=== PATIENT | female | born 1940 | race Asian ===

== ENCOUNTER → 2020-09-18 | Outpatient (CLI) | payer MEDICARE | END | disposition home or self-care (01) | LOC: RADPV 08:48 | PROVIDERS: ATTEND Family Medicine | DX: J90 Pleural effusion, not elsewhere classified (principal); J98.11 Atelectasis; Z20.1 Contact with and (suspected) exposure to tuberculosis | CPT/HCPCS: 71046 ==

== ENCOUNTER 2020-10-03 16:43 | Inpatient (IN) | payer MEDICARE ==
[~2020-10-03] VITALS: Ht 162.6 cm; Wt 52.7 kg
[2020-10-03 19:00] LABS: EOSINOPHILS % (AUTO) 4.9 % (1.0-6.0); HEMATOCRIT 36.2 % (41-53); HEMOGLOBIN 11.7 g/dL (13.5-17.5); LYMPHOCYTES # (AUTO) 1.4 K/uL (1.0-4.8); LYMPHOCYTES % (AUTO) 31.5 % (22.0-44.0); MEAN CORPUSCULAR HEMOGLOBIN 32.1 pg (26.0-34.0); MEAN CORPUSCULAR HGB CONC 32.3 G/dL (31.0-37.0); MEAN CORPUSCULAR VOLUME 99 fL (80-100); MONOCYTES # (AUTO) 0.6 K/uL (0.1-1.0); MONOCYTES % (AUTO) 12.9 % (2.0-9.0); NEUTROPHILS # (AUTO) 2.2 K/uL (1.8-7.7); NEUTROPHILS % (AUTO) 48.7 % (40.0-70.0); PLATELET COUNT (AUTO) 101 K/uL (150-450); RED BLOOD CELL COUNT(AUTO) 3.65 MIL/uL (4.50-5.90); RED CELL DISTRIBUTION WIDTH 16.1 % (11.5-14.5)
[2020-10-03 19:03] LABS: COVID AG,FIA SOURCE NASOPHARYNGEAL
[2020-10-03 19:11] LABS: CALCIUM, TOTAL 8.3 mg/dL (8.8-10.5); CREATININE 1.82 mg/dL (0.60-1.30); POTASSIUM 4.8 mmol/L (3.5-5.1)
[2020-10-03] MEDS ORDERED: ONDANSETRON HCL 4 MG/2 ML VIAL IVP PRN ×2 (19:15→19:30)
[2020-10-03] MEDS ORDERED: ACETAMINOPHEN 325 MG TABLET PO PRN ×2 (19:15→19:30)
[2020-10-03 19:18] LABS: ALBUMIN 2.6 g/dL (3.4-5.0); BILIRUBIN,TOTAL 0.5 mg/dL (0.1-1.0); TOTAL PROTEIN, SERUM 7.9 g/dL (6.4-8.2)
[2020-10-03] MEDS ORDERED: 0.9% SODIUM CHLORIDE 10 ML SYRINGE IVP PRN (19:30)
[2020-10-03] MEDS: DOCUSATE SODIUM 100 MG CAPSULE PO SCH (21:00)
[2020-10-03 21:15] VITALS: BP 154/83
[2020-10-03] MEDS ORDERED: ASPI81TA87 PO (21:48)
[2020-10-03] MEDS ORDERED: ATOR20TA86 PO (21:49)
[2020-10-03] MEDS ORDERED: AMIO200T68 PO (21:49)
[2020-10-03] MEDS ORDERED: APIX2.5T PO (21:50)
[2020-10-03] MEDS ORDERED: CARV3 PO (21:50)
[2020-10-03 23:49] LABS: GLUCOMETER DEV NAME(LOC) 6N.1; GLUCOSE,POINT OF CARE 79 MG/DL (70-110)
[2020-10-03] MEDS: HEPARIN SODIUM,PORCINE 5,000 UNITS/ML VIAL SQ SCH (23:51)
[2020-10-04] VITALS (7 sets, daily range): BP systolic 118–173; BP diastolic 66–85
[2020-10-04] MEDS ORDERED: CloNIDine HCL 0.1 MG TABLET PO PRN
[2020-10-04 02:43] LABS: GLUCOMETER DEV NAME(LOC) 6N.1; GLUCOSE,POINT OF CARE 101 MG/DL (70-110)
[2020-10-04] MEDS ORDERED: SODIUM CHLORIDE 3% 15 ML NEB SOLUTION NEB ONE (05:22)
[2020-10-04] MEDS ORDERED: 0.9% SODIUM CHLORIDE 5 ML NEB SOLUTION NEB ONE (05:23)
[2020-10-04 06:43] LABS: GLUCOMETER DEV NAME(LOC) 6N.1; GLUCOSE,POINT OF CARE 85 MG/DL (70-110)
[2020-10-04 07:06] LABS: HIV 1-2 SCREEN 4TH GEN W/RFLX Non Reactive (Non Reactive)
[2020-10-04 08:43] LABS: APPEARANCE,URINE CLEAR (CLEAR); BILIRUBIN,URINE NEGATIVE (NEGATIVE); GLUCOSE, URINE (UA) NEGATIVE (NEGATIVE); KETONES,URINE NEGATIVE (NEGATIVE); LEUKOCYTE ESTERASE ,URINE NEGATIVE (NEGATIVE); NITRATE,URINE NEGATIVE (NEGATIVE); OCCULT BLOOD,URINE NEGATIVE (NEGATIVE); PROTEIN,URINE SEE CONFIRM (NEGATIVE); UROBILINOGEN,URINE 0.2 mg/dL (<=1.0)
[2020-10-04] MEDS: HEPARIN SODIUM,PORCINE 5,000 UNITS/ML VIAL SQ SCH ×2 (08:56→21:04)
[2020-10-04] MEDS: DOCUSATE SODIUM 100 MG CAPSULE PO SCH ×2 (08:56→21:04)
[2020-10-04] MEDS: FAMOTIDINE 20 MG TABLET PO SCH (08:56)
[2020-10-04 09:05] LABS: BACTERIA,URINE None Seen /HPF (None Seen); RBC,URINE None Seen /HPF (0-2); SULFOSALICYLIC ACID,URINE 3+ (Negative); WBC,URINE None Seen /HPF (0-5)
[2020-10-04] MEDS: INSULIN LISPRO 100 UNITS/ML SQ PRN ×2 (11:56→21:11)
[2020-10-04 12:49] LABS: GLUCOMETER DEV NAME(LOC) 6N.1; GLUCOSE,POINT OF CARE 146 MG/DL (70-110)
[2020-10-04 18:42] LABS: GLUCOMETER DEV NAME(LOC) 6S.1; GLUCOSE,POINT OF CARE 66 MG/DL (70-110)
[2020-10-05 00:03] LABS: GLUCOMETER DEV NAME(LOC) 6N.1; GLUCOSE,POINT OF CARE 153 MG/DL (70-110)
[2020-10-05 04:20] VITALS: BP 155/74
[2020-10-05 06:38] LABS: GLUCOMETER DEV NAME(LOC) 6S.1; GLUCOSE,POINT OF CARE 98 MG/DL (70-110)
[2020-10-05 08:24] VITALS: BP 147/72
[2020-10-05] MEDS: HEPARIN SODIUM,PORCINE 5,000 UNITS/ML VIAL SQ SCH ×2 (08:34→20:30)
[2020-10-05] MEDS: DOCUSATE SODIUM 100 MG CAPSULE PO SCH ×2 (08:34→20:30)
[2020-10-05] MEDS: FAMOTIDINE 20 MG TABLET PO SCH (08:34)
[2020-10-05] MEDS: CARVEDILOL 3.125 MG TABLET PO SCH ×2 (11:29→20:30)
[2020-10-05] MEDS: INSULIN LISPRO 100 UNITS/ML SQ PRN ×3 (11:32→20:32)
[2020-10-05 14:52] LABS: INR 1.1 (0.9-1.1); PROTHROMBIN TIME 11.4 SEC (9.4-11.6)
[2020-10-05] MEDS: CloNIDine HCL 0.1 MG TABLET PO PRN (15:50)
[2020-10-05 16:05] VITALS: BP 178/83
[2020-10-05 16:55] VITALS: BP 155/82
[2020-10-05 18:59] LABS: GLUCOMETER DEV NAME(LOC) 6N.1; GLUCOSE,POINT OF CARE 139 MG/DL (70-110)
[2020-10-05 19:53] VITALS: BP 164/73
[2020-10-05] MEDS: ATORVASTATIN CALCIUM 20 MG TABLET PO SCH (20:30)
[2020-10-06 00:02] VITALS: BP 143/68
[2020-10-06 00:41] LABS: GLUCOMETER DEV NAME(LOC) 6S.1; GLUCOSE,POINT OF CARE 104 MG/DL (70-110)
[2020-10-06 00:41] LABS: GLUCOMETER DEV NAME(LOC) 6S.1; GLUCOSE,POINT OF CARE 214 MG/DL (70-110)
[2020-10-06 04:43] VITALS: BP 158/74
[2020-10-06 07:07] LABS: GLUCOMETER DEV NAME(LOC) 6S.1; GLUCOSE,POINT OF CARE 84 MG/DL (70-110)
[2020-10-06 07:48] VITALS: BP 152/71
[2020-10-06 08:06] LABS: QUANTIFERON, TB GOLD PLUS Positive (Negative)
[2020-10-06] MEDS: DOCUSATE SODIUM 100 MG CAPSULE PO SCH ×2 (09:00→20:43)
[2020-10-06] MEDS: FAMOTIDINE 20 MG TABLET PO SCH (09:00)
[2020-10-06] MEDS: CARVEDILOL 3.125 MG TABLET PO SCH ×2 (09:00→20:43)
[2020-10-06] MEDS: HEPARIN SODIUM,PORCINE 5,000 UNITS/ML VIAL SQ SCH ×2 (09:00→20:43)
[2020-10-06] MEDS: ASPIRIN 81 MG CHEWABLE TABLET PO SCH (09:00)
[2020-10-06 11:01] LABS: SPECIMENTYPE,BODY FLUID PLEURAL
[2020-10-06 11:24] LABS: APPEARANCE,UNSPUN,BODY FLUID HAZY (CLEAR); COLOR,BODY FLUID RED (LT YELLOW); TOTAL VOLUME,BODY FLUID 200 mL
[2020-10-06 11:27] LABS: APPEARANCE,SPUN,BODY FLUID CLEAR (CLEAR)
[2020-10-06] MEDS: INSULIN LISPRO 100 UNITS/ML SQ PRN ×2 (11:30→17:22)
[2020-10-06 12:05] LABS: BASOPHILS,BODY FLUID 0 %; EOSINOPHILS,BF (ANAL) 0 %; LYMPHOCYTES,BODY FLUID 100 %; MONOCYTES,BODY FLUID 0 %; NEUTROPHILS,BODY FLUID 0 %; WBC, BODY FLUID 6 /cu. mm.
[2020-10-06 12:58] LABS: GLUCOMETER DEV NAME(LOC) 6S.1; GLUCOSE,POINT OF CARE 92 MG/DL (70-110)
[2020-10-06] MEDS ORDERED: SODIUM CHLORIDE 0.9% 1,000 ML ONE ×2 (13:15)
[2020-10-06] MEDS: ATORVASTATIN CALCIUM 20 MG TABLET PO SCH (20:43)
[2020-10-06 20:49] VITALS: BP 152/80
[2020-10-06 23:01] LABS: GLUCOMETER DEV NAME(LOC) 6N.1; GLUCOSE,POINT OF CARE 91 MG/DL (70-110)
[2020-10-06 23:01] LABS: GLUCOMETER DEV NAME(LOC) 6N.1; GLUCOSE,POINT OF CARE 86 MG/DL (70-110)
[2020-10-07 00:21] VITALS: BP 147/64
[2020-10-07 04:05] VITALS: BP 142/65
[2020-10-07] MEDS: CARVEDILOL 3.125 MG TABLET PO SCH ×2 (08:16→21:33)
[2020-10-07] MEDS: ASPIRIN 81 MG CHEWABLE TABLET PO SCH (08:16)
[2020-10-07] MEDS: HEPARIN SODIUM,PORCINE 5,000 UNITS/ML VIAL SQ SCH ×2 (08:16→21:33)
[2020-10-07] MEDS: DOCUSATE SODIUM 100 MG CAPSULE PO SCH ×2 (08:16→21:33)
[2020-10-07] MEDS: FAMOTIDINE 20 MG TABLET PO SCH (08:16)
[2020-10-07 08:20] VITALS: BP 143/56
[2020-10-07 12:56] LABS: GLUCOMETER DEV NAME(LOC) 6N.1; GLUCOSE,POINT OF CARE 80 MG/DL (70-110)
[2020-10-07 12:56] LABS: GLUCOMETER DEV NAME(LOC) 6N.1; GLUCOSE,POINT OF CARE 130 MG/DL (70-110)
[2020-10-07 15:26] VITALS: BP 146/77
[2020-10-07] MEDS ORDERED: HEPARIN SODIUM,PORCINE 1,000 UNITS/ML VIAL IVP ONE (16:41)
[2020-10-07 18:33] LABS: GLUCOMETER DEV NAME(LOC) 6N.1; GLUCOSE,POINT OF CARE 86 MG/DL (70-110)
[2020-10-07 20:07] VITALS: BP 152/73
[2020-10-07] MEDS: ATORVASTATIN CALCIUM 20 MG TABLET PO SCH (21:33)
[2020-10-07 21:52] LABS: GLUCOMETER DEV NAME(LOC) 6S.1; GLUCOSE,POINT OF CARE 119 MG/DL (70-110)
[2020-10-07 23:36] VITALS: BP 146/66
[2020-10-08 04:36] VITALS: BP 149/66
[2020-10-08 07:28] LABS: ALBUMIN 2.5 g/dL (3.4-5.0); BILIRUBIN,TOTAL 0.4 mg/dL (0.1-1.0); CREATININE 3.4 mg/dL (0.60-1.30); POTASSIUM 3.9 mmol/L (3.5-5.1); TOTAL PROTEIN, SERUM 7.1 g/dL (6.4-8.2)
[2020-10-08 08:48] VITALS: BP 151/60
[2020-10-08] MEDS: ASPIRIN 81 MG CHEWABLE TABLET PO SCH (09:00)
[2020-10-08] MEDS: HEPARIN SODIUM,PORCINE 5,000 UNITS/ML VIAL SQ SCH ×2 (09:00→21:31)
[2020-10-08] MEDS: CARVEDILOL 3.125 MG TABLET PO SCH ×2 (09:00→21:31)
[2020-10-08] MEDS: VITAMIN B COMP/VIT C/FOLIC ACID CAPSULE PO SCH (09:20)
[2020-10-08] MEDS: FAMOTIDINE 20 MG TABLET PO SCH (09:20)
[2020-10-08] MEDS: DOCUSATE SODIUM 100 MG CAPSULE PO SCH ×2 (09:20→21:31)
[2020-10-08 11:01] LABS: GLUCOMETER DEV NAME(LOC) 6S.1; GLUCOSE,POINT OF CARE 74 MG/DL (70-110)
[2020-10-08 14:21] LABS: GLUCOMETER DEV NAME(LOC) 6N.1; GLUCOSE,POINT OF CARE 109 MG/DL (70-110)
[2020-10-08 16:30] VITALS: BP 130/84
[2020-10-08] MEDS ORDERED: SODIUM CHLORIDE 0.9% 2,000 ML ONE (17:06)
[2020-10-08 21:02] VITALS: BP 180/86
[2020-10-08] MEDS: ATORVASTATIN CALCIUM 20 MG TABLET PO SCH (21:31)
[2020-10-08 22:19] LABS: GLUCOMETER DEV NAME(LOC) 6S.1; GLUCOSE,POINT OF CARE 115 MG/DL (70-110)
[2020-10-09] VITALS (7 sets, daily range): BP systolic 119–158; BP diastolic 60–84
[2020-10-09] MEDS: VITAMIN B COMP/VIT C/FOLIC ACID CAPSULE PO SCH (09:08)
[2020-10-09] MEDS: ASPIRIN 81 MG CHEWABLE TABLET PO SCH (09:08)
[2020-10-09] MEDS: HEPARIN SODIUM,PORCINE 5,000 UNITS/ML VIAL SQ SCH ×2 (09:08→20:43)
[2020-10-09] MEDS: FAMOTIDINE 20 MG TABLET PO SCH (09:08)
[2020-10-09] MEDS: DOCUSATE SODIUM 100 MG CAPSULE PO SCH ×2 (09:08→20:43)
[2020-10-09] MEDS: CARVEDILOL 3.125 MG TABLET PO SCH ×2 (09:08→20:43)
[2020-10-09 13:16] LABS: GLUCOMETER DEV NAME(LOC) 6N.1; GLUCOSE,POINT OF CARE 113 MG/DL (70-110)
[2020-10-09 13:16] LABS: GLUCOMETER DEV NAME(LOC) 6N.1; GLUCOSE,POINT OF CARE 93 MG/DL (70-110)
[2020-10-09] MEDS ORDERED: HEPARIN SODIUM,PORCINE 1,000 UNITS/ML VIAL IVP ONE (14:55)
[2020-10-09 18:49] LABS: GLUCOMETER DEV NAME(LOC) 6S.1; GLUCOSE,POINT OF CARE 96 MG/DL (70-110)
[2020-10-09] MEDS: ATORVASTATIN CALCIUM 20 MG TABLET PO SCH (20:43)
[2020-10-10 00:15] LABS: GLUCOMETER DEV NAME(LOC) 6N.1; GLUCOSE,POINT OF CARE 90 MG/DL (70-110)
[2020-10-10 04:02] VITALS: BP 149/67
[2020-10-10 06:18] LABS: GLUCOMETER DEV NAME(LOC) 6N.1; GLUCOSE,POINT OF CARE 90 MG/DL (70-110)
[2020-10-10] MEDS: FAMOTIDINE 20 MG TABLET PO SCH (08:19)
[2020-10-10] MEDS: VITAMIN B COMP/VIT C/FOLIC ACID CAPSULE PO SCH (08:19)
[2020-10-10] MEDS: DOCUSATE SODIUM 100 MG CAPSULE PO SCH ×2 (08:20→20:39)
[2020-10-10] MEDS: ASPIRIN 81 MG CHEWABLE TABLET PO SCH (08:20)
[2020-10-10] MEDS: HEPARIN SODIUM,PORCINE 5,000 UNITS/ML VIAL SQ SCH ×2 (08:20→20:40)
[2020-10-10 08:25] VITALS: BP 137/71
[2020-10-10] MEDS: CARVEDILOL 3.125 MG TABLET PO SCH ×3 (08:26→21:00)
[2020-10-10] MEDS ORDERED: SODIUM CHLORIDE 0.9% 1,000 ML ONE ×2 (09:30)
[2020-10-10 12:28] VITALS: BP 133/74
[2020-10-10 12:38] LABS: GLUCOMETER DEV NAME(LOC) 6S.1; GLUCOSE,POINT OF CARE 93 MG/DL (70-110)
[2020-10-10 16:08] VITALS: BP 141/69
[2020-10-10] MEDS: RIFAMPIN 300 MG CAPSULE PO SCH (16:39)
[2020-10-10] MEDS: ISONIAZID 300 MG TABLET PO SCH (16:39)
[2020-10-10] MEDS: ETHAMBUTOL HCL 400 MG TABLET PO SCH (16:39)
[2020-10-10] MEDS ORDERED: HEPARIN SODIUM,PORCINE 1,000 UNITS/ML VIAL ONE (17:44)
[2020-10-10 19:19] LABS: GLUCOMETER DEV NAME(LOC) 6S.1; GLUCOSE,POINT OF CARE 97 MG/DL (70-110)
[2020-10-10 20:00] VITALS: BP 140/66
[2020-10-10] MEDS: ATORVASTATIN CALCIUM 20 MG TABLET PO SCH (20:39)
[2020-10-10 23:40] VITALS: BP 107/77
[2020-10-11 01:23] LABS: GLUCOMETER DEV NAME(LOC) 6N.1; GLUCOSE,POINT OF CARE 107 MG/DL (70-110)
[2020-10-11] MEDS: INSULIN LISPRO 100 UNITS/ML SQ PRN (06:14)
[2020-10-11 06:30] LABS: GLUCOMETER DEV NAME(LOC) 6N.1; GLUCOSE,POINT OF CARE 158 MG/DL (70-110)
[2020-10-11 07:44] VITALS: BP 129/68
[2020-10-11] MEDS: ASPIRIN 81 MG CHEWABLE TABLET PO SCH (08:27)
[2020-10-11] MEDS: CARVEDILOL 3.125 MG TABLET PO SCH ×2 (08:27→22:16)
[2020-10-11] MEDS: RIFAMPIN 300 MG CAPSULE PO SCH (08:27)
[2020-10-11] MEDS: DOCUSATE SODIUM 100 MG CAPSULE PO SCH ×2 (08:27→22:15)
[2020-10-11] MEDS: HEPARIN SODIUM,PORCINE 5,000 UNITS/ML VIAL SQ SCH ×2 (08:27→22:16)
[2020-10-11] MEDS: ISONIAZID 300 MG TABLET PO SCH (08:27)
[2020-10-11] MEDS: FAMOTIDINE 20 MG TABLET PO SCH (08:27)
[2020-10-11] MEDS: VITAMIN B COMP/VIT C/FOLIC ACID CAPSULE PO SCH (08:27)
[2020-10-11] MEDS ORDERED: PYRAZINAMIDE 500 MG TABLET PO ONE (10:30)
[2020-10-11 12:00] VITALS: BP 123/71
[2020-10-11 12:46] LABS: GLUCOMETER DEV NAME(LOC) 6S.1; GLUCOSE,POINT OF CARE 74 MG/DL (70-110)
[2020-10-11 15:35] VITALS: BP 122/64
[2020-10-11 21:03] VITALS: BP 136/65
[2020-10-11] MEDS: ATORVASTATIN CALCIUM 20 MG TABLET PO SCH (22:15)
[2020-10-11 23:41] LABS: GLUCOMETER DEV NAME(LOC) 6N.1; GLUCOSE,POINT OF CARE 96 MG/DL (70-110)
[2020-10-12 00:20] VITALS: BP 106/57
[2020-10-12 00:38] LABS: GLUCOMETER DEV NAME(LOC) 6S.1; GLUCOSE,POINT OF CARE 98 MG/DL (70-110)
[2020-10-12 04:55] VITALS: BP 105/56
[2020-10-12 06:26] LABS: GLUCOMETER DEV NAME(LOC) 6S.1; GLUCOSE,POINT OF CARE 87 MG/DL (70-110)
[2020-10-12 07:35] VITALS: BP 123/59
[2020-10-12] MEDS: HEPARIN SODIUM,PORCINE 5,000 UNITS/ML VIAL SQ SCH ×2 (09:13→21:07)
[2020-10-12] MEDS: ISONIAZID 300 MG TABLET PO SCH (09:13)
[2020-10-12] MEDS: DOCUSATE SODIUM 100 MG CAPSULE PO SCH ×2 (09:14→21:07)
[2020-10-12] MEDS: ASPIRIN 81 MG CHEWABLE TABLET PO SCH (09:14)
[2020-10-12] MEDS: VITAMIN B COMP/VIT C/FOLIC ACID CAPSULE PO SCH (09:14)
[2020-10-12] MEDS: FAMOTIDINE 20 MG TABLET PO SCH (09:14)
[2020-10-12] MEDS: CARVEDILOL 3.125 MG TABLET PO SCH ×2 (09:14→21:07)
[2020-10-12] MEDS: RIFAMPIN 300 MG CAPSULE PO SCH (09:14)
[2020-10-12 13:24] LABS: GLUCOMETER DEV NAME(LOC) 6S.1; GLUCOSE,POINT OF CARE 97 MG/DL (70-110)
[2020-10-12 16:19] VITALS: BP 108/57
[2020-10-12 19:38] VITALS: BP 107/71
[2020-10-12] MEDS: ATORVASTATIN CALCIUM 20 MG TABLET PO SCH (21:08)
[2020-10-12 23:41] VITALS: BP 93/50
[2020-10-13 04:40] VITALS: BP 96/40
[2020-10-13 05:43] LABS: GLUCOMETER DEV NAME(LOC) 6N.1; GLUCOSE,POINT OF CARE 86 MG/DL (70-110)
[2020-10-13 05:43] LABS: GLUCOMETER DEV NAME(LOC) 6N.1; GLUCOSE,POINT OF CARE 86 MG/DL (70-110)
[2020-10-13 05:43] LABS: GLUCOMETER DEV NAME(LOC) 6N.1; GLUCOSE,POINT OF CARE 89 MG/DL (70-110)
[2020-10-13 07:51] VITALS: BP 104/56
[2020-10-13] MEDS: HEPARIN SODIUM,PORCINE 5,000 UNITS/ML VIAL SQ SCH ×2 (08:11→21:20)
[2020-10-13] MEDS: VITAMIN B COMP/VIT C/FOLIC ACID CAPSULE PO SCH (08:11)
[2020-10-13] MEDS: FAMOTIDINE 20 MG TABLET PO SCH (08:12)
[2020-10-13] MEDS: ASPIRIN 81 MG CHEWABLE TABLET PO SCH (08:12)
[2020-10-13] MEDS: CARVEDILOL 3.125 MG TABLET PO SCH ×2 (08:12→21:00)
[2020-10-13] MEDS: DOCUSATE SODIUM 100 MG CAPSULE PO SCH ×2 (08:12→21:20)
[2020-10-13] MEDS ORDERED: SODIUM CHLORIDE 0.9% 1,000 ML ONE (09:41)
[2020-10-13 13:03] LABS: GLUCOMETER DEV NAME(LOC) 6S.1; GLUCOSE,POINT OF CARE 81 MG/DL (70-110)
[2020-10-13] MEDS: PYRAZINAMIDE 500 MG TABLET PO SCH (14:22)
[2020-10-13] MEDS: ISONIAZID 300 MG TABLET PO SCH (14:23)
[2020-10-13] MEDS: RIFAMPIN 300 MG CAPSULE PO SCH (14:23)
[2020-10-13] MEDS: ETHAMBUTOL HCL 400 MG TABLET PO SCH (14:23)
[2020-10-13 15:50] VITALS: BP 108/58
[2020-10-13] MEDS ORDERED: HEPARIN SODIUM,PORCINE 1,000 UNITS/ML VIAL ONE (17:44)
[2020-10-13 18:03] VITALS: BP 104/53
[2020-10-13 20:10] LABS: GLUCOMETER DEV NAME(LOC) 6N.1; GLUCOSE,POINT OF CARE 80 MG/DL (70-110)
[2020-10-13 20:11] VITALS: BP 111/50
[2020-10-13] MEDS: ATORVASTATIN CALCIUM 20 MG TABLET PO SCH (21:20)
[2020-10-13] MEDS: DEXTROSE 50%-WATER 25 GM/50 ML SYRINGE IVP PRN (21:21)
[2020-10-13 21:46] LABS: GLUCOMETER DEV NAME(LOC) 6S.1; GLUCOSE,POINT OF CARE 71 MG/DL (70-110)
[2020-10-13 21:46] LABS: GLUCOMETER DEV NAME(LOC) 6S.1; GLUCOSE,POINT OF CARE 266 MG/DL (70-110)
[2020-10-13 21:46] LABS: GLUCOMETER DEV NAME(LOC) 6S.1; GLUCOSE,POINT OF CARE 68 MG/DL (70-110)
[2020-10-13 23:23] VITALS: BP 98/47
[2020-10-14 03:46] VITALS: BP 111/44
[2020-10-14 07:33] LABS: GLUCOMETER DEV NAME(LOC) 6N.1; GLUCOSE,POINT OF CARE 67 MG/DL (70-110)
[2020-10-14 07:33] LABS: GLUCOMETER DEV NAME(LOC) 6N.1; GLUCOSE,POINT OF CARE 81 MG/DL (70-110)
[2020-10-14 07:45] VITALS: BP 108/44
[2020-10-14] MEDS: VITAMIN B COMP/VIT C/FOLIC ACID CAPSULE PO SCH (08:29)
[2020-10-14] MEDS: CARVEDILOL 3.125 MG TABLET PO SCH ×2 (08:29→20:39)
[2020-10-14] MEDS: HEPARIN SODIUM,PORCINE 5,000 UNITS/ML VIAL SQ SCH ×2 (08:30→20:39)
[2020-10-14] MEDS: ISONIAZID 300 MG TABLET PO SCH (08:30)
[2020-10-14] MEDS: RIFAMPIN 300 MG CAPSULE PO SCH (08:30)
[2020-10-14] MEDS: DOCUSATE SODIUM 100 MG CAPSULE PO SCH ×2 (08:30→20:39)
[2020-10-14] MEDS: FAMOTIDINE 20 MG TABLET PO SCH (08:30)
[2020-10-14] MEDS: ASPIRIN 81 MG CHEWABLE TABLET PO SCH (08:30)
[2020-10-14] MEDS: INSULIN LISPRO 100 UNITS/ML SQ PRN ×2 (12:03→17:56)
[2020-10-14 14:03] LABS: GLUCOMETER DEV NAME(LOC) 6N.1; GLUCOSE,POINT OF CARE 174 MG/DL (70-110)
[2020-10-14] MEDS ORDERED: B CO1CAP6 PO (14:25)
[2020-10-14] MEDS ORDERED: PYRA500 PO (14:25)
[2020-10-14] MEDS ORDERED: ISON300 PO (14:25)
[2020-10-14] MEDS ORDERED: RIFA300 PO (14:25)
[2020-10-14] MEDS ORDERED: ETHA400 PO (14:25)
[2020-10-14 17:00] VITALS: BP 135/61
[2020-10-14] MEDS: DEXTROSE 50%-WATER 25 GM/50 ML SYRINGE IVP PRN (17:28)
[2020-10-14 20:26] VITALS: BP 113/47
[2020-10-14] MEDS: ATORVASTATIN CALCIUM 20 MG TABLET PO SCH (20:39)
[2020-10-14 23:51] VITALS: BP 107/49
[2020-10-15 04:00] VITALS: BP 110/52
[2020-10-15] MEDS ORDERED: SODIUM CHLORIDE 0.9% 2,000 ML ONE (07:13)
[2020-10-15 07:25] LABS: GLUCOMETER DEV NAME(LOC) 6N.1; GLUCOSE,POINT OF CARE 64 MG/DL (70-110)
[2020-10-15 07:25] LABS: GLUCOMETER DEV NAME(LOC) 6N.1; GLUCOSE,POINT OF CARE 85 MG/DL (70-110)
[2020-10-15 07:25] LABS: GLUCOMETER DEV NAME(LOC) 6N.1; GLUCOSE,POINT OF CARE 65 MG/DL (70-110)
[2020-10-15 07:25] LABS: GLUCOMETER DEV NAME(LOC) 6N.1; GLUCOSE,POINT OF CARE 134 MG/DL (70-110)
[2020-10-15 07:25] LABS: GLUCOMETER DEV NAME(LOC) 6N.1; GLUCOSE,POINT OF CARE 146 MG/DL (70-110)
[2020-10-15 08:10] VITALS: BP 139/72
[2020-10-15] MEDS: ASPIRIN 81 MG CHEWABLE TABLET PO SCH (11:05)
[2020-10-15] MEDS: PYRAZINAMIDE 500 MG TABLET PO SCH (11:05)
[2020-10-15] MEDS: FAMOTIDINE 20 MG TABLET PO SCH (11:06)
[2020-10-15] MEDS: VITAMIN B COMP/VIT C/FOLIC ACID CAPSULE PO SCH (11:06)
[2020-10-15] MEDS: ETHAMBUTOL HCL 400 MG TABLET PO SCH (11:06)
[2020-10-15] MEDS: DOCUSATE SODIUM 100 MG CAPSULE PO SCH ×2 (11:06→20:36)
[2020-10-15] MEDS: RIFAMPIN 300 MG CAPSULE PO SCH (11:06)
[2020-10-15] MEDS: CARVEDILOL 3.125 MG TABLET PO SCH ×2 (11:06→20:36)
[2020-10-15] MEDS: HEPARIN SODIUM,PORCINE 5,000 UNITS/ML VIAL SQ SCH ×2 (11:07→20:36)
[2020-10-15 11:40] VITALS: BP 127/60
[2020-10-15] MEDS: ISONIAZID 300 MG TABLET PO SCH (11:48)
[2020-10-15 11:54] LABS: CREATININE 1.76 mg/dL (0.60-1.30); MAGNESIUM 1.2 mg/dL (1.80-2.40); PHOSPHORUS 2.3 mg/dL (2.5-4.9); POTASSIUM 4.1 mmol/L (3.5-5.1)
[2020-10-15] MEDS: INSULIN LISPRO 100 UNITS/ML SQ PRN ×2 (12:02→16:54)
[2020-10-15 14:09] LABS: GLUCOMETER DEV NAME(LOC) 6S.1; GLUCOSE,POINT OF CARE 89 MG/DL (70-110)
[2020-10-15 14:09] LABS: GLUCOMETER DEV NAME(LOC) 6S.1; GLUCOSE,POINT OF CARE 69 MG/DL (70-110)
[2020-10-15] MEDS ORDERED: MAGNESIUM SULFATE 0.5 GM in DEXTROSE 5%-WATER 50 ML IV ONE (14:30)
[2020-10-15] MEDS ORDERED: SODIUM CHLORIDE 0.9% 50 ML ONE (14:52)
[2020-10-15 15:10] VITALS: BP 143/65
[2020-10-15 15:26] LABS: BILIRUBIN,DIRECT 0.6 mg/dL (0.00-0.20); BILIRUBIN,TOTAL 0.9 mg/dL (0.1-1.0); TOTAL PROTEIN, SERUM 8.1 g/dL (6.4-8.2)
[2020-10-15] MEDS: PYRIDOXINE HCL 50 MG TABLET PO SCH (15:42)
[2020-10-15 16:11] LABS: ABG BASE EXCESS 4.2 mmol/L (-2.0-3.0); ABG CARBOXYHEMOGLOBIN 0.3 % (0.0-1.5); ABG HCO3 27.5 mmol/L (22.0-26.0); ABG METHEMOGLOBIN 0.3 % (0.0-1.5); ABG OXYGEN CONTENT 14.9 mL/dL (15.0-23.0); ABG OXYGEN SATURATION 99.1 % (95.0-98.0); ABG OXYHEMOGLOBIN 98.5 % (94.0-100.0); ABG PCO2 53 mmHg (35-45); ABG PH 7.363 (7.35-7.450); ABG TOTAL HEMOGLOBIN 10.5 G/dL (12.0-18.0); SOURCE, BLOOD GAS ARTERIAL; TEMPERATURE, FAHRENHEIT, BG 98.6 FAHREN (96.0-98.6)
[2020-10-15 16:12] LABS: O2 DEVICE,BLOOD GAS CANNULA (ROOM AIR); SITE, BLOOD GAS RT RADIAL
[2020-10-15] MEDS ORDERED: *CLINICAL-CEFTAZIDIME DOSING CLINICAL ONE (17:00)
[2020-10-15] MEDS ORDERED: HEPARIN SODIUM,PORCINE 1,000 UNITS/ML VIAL IVP ONE (17:33)
[2020-10-15] MEDS: CefTAZidime PENTAHYDRATE 1 GM in DEXTROSE 5%-WATER 50 ML IV SCH (18:14)
[2020-10-15 18:25] LABS: BASOPHILS % (AUTO) 0.5 % (0.0-2.0); EOSINOPHILS % (AUTO) 0.4 % (1.0-6.0); HEMATOCRIT 31.7 % (41-53); HEMOGLOBIN 10.4 g/dL (13.5-17.5); LYMPHOCYTES # (AUTO) 0.5 K/uL (1.0-4.8); LYMPHOCYTES % (AUTO) 10.4 % (22.0-44.0); MEAN CORPUSCULAR HEMOGLOBIN 32.2 pg (26.0-34.0); MEAN CORPUSCULAR HGB CONC 32.7 G/dL (31.0-37.0); MEAN CORPUSCULAR VOLUME 98 fL (80-100); MONOCYTES # (AUTO) 0.7 K/uL (0.1-1.0); MONOCYTES % (AUTO) 14.1 % (2.0-9.0); NEUTROPHILS # (AUTO) 3.6 K/uL (1.8-7.7); NEUTROPHILS % (AUTO) 74.6 % (40.0-70.0); RED BLOOD CELL COUNT(AUTO) 3.22 MIL/uL (4.50-5.90); RED CELL DISTRIBUTION WIDTH 15.7 % (11.5-14.5)
[2020-10-15] MEDS ORDERED: VANCOMYCIN HCL 1 GM/D5% WATER 200 ML IV ONE (18:30)
[2020-10-15 19:15] LABS: GLUCOMETER DEV NAME(LOC) 6N.1; GLUCOSE,POINT OF CARE 155 MG/DL (70-110)
[2020-10-15 19:19] LABS: PLATELET COUNT (AUTO) 105 K/uL (150-450)
[2020-10-15 20:12] VITALS: BP 128/65
[2020-10-15] MEDS: ATORVASTATIN CALCIUM 20 MG TABLET PO SCH (20:36)
[2020-10-15 22:12] LABS: GLUCOMETER DEV NAME(LOC) 6S.1; GLUCOSE,POINT OF CARE 159 MG/DL (70-110)
[2020-10-15 23:49] VITALS: BP 120/55
[2020-10-16 05:53] VITALS: BP 133/55
[2020-10-16 06:12] LABS: GLUCOMETER DEV NAME(LOC) 6S.1; GLUCOSE,POINT OF CARE 74 MG/DL (70-110)
[2020-10-16 06:12] LABS: GLUCOMETER DEV NAME(LOC) 6S.1; GLUCOSE,POINT OF CARE 122 MG/DL (70-110)
[2020-10-16 06:24] LABS: CALCIUM, TOTAL 7.5 mg/dL (8.8-10.5); CREATININE 3.7 mg/dL (0.60-1.30); MAGNESIUM 2.1 mg/dL (1.80-2.40); POTASSIUM 5.2 mmol/L (3.5-5.1)
[2020-10-16 07:03] LABS: BILIRUBIN,URINE NEGATIVE (NEGATIVE); GLUCOSE, URINE (UA) NEGATIVE (NEGATIVE); KETONES,URINE NEGATIVE (NEGATIVE); LEUKOCYTE ESTERASE ,URINE SMALL (NEGATIVE); NITRATE,URINE NEGATIVE (NEGATIVE); OCCULT BLOOD,URINE SMALL (NEGATIVE); PH,URINE 6.5 (5.0-8.0); PROTEIN,URINE SEE CONFIRM (NEGATIVE)
[2020-10-16 07:51] LABS: APPEARANCE,URINE HAZY (CLEAR)
[2020-10-16 07:52] LABS: BACTERIA,URINE None Seen /HPF (None Seen); SULFOSALICYLIC ACID,URINE 2+ (Negative)
[2020-10-16 07:53] LABS: FINE GRANULAR CASTS,URINE 0-2 /LPF (None Seen)
[2020-10-16] MEDS ORDERED: VANCOMYCIN HCL 750 MG in DEXTROSE 5%-WATER 250 ML IV SCH (08:00)
[2020-10-16 08:06] VITALS: BP 155/63
[2020-10-16] MEDS ORDERED: VANCOMYCIN HCL 1 GM/D5% WATER 200 ML IV PRN (08:45)
[2020-10-16] MEDS: ISONIAZID 300 MG TABLET PO SCH (09:03)
[2020-10-16] MEDS: VITAMIN B COMP/VIT C/FOLIC ACID CAPSULE PO SCH (09:03)
[2020-10-16] MEDS: ASPIRIN 81 MG CHEWABLE TABLET PO SCH (09:03)
[2020-10-16] MEDS: FAMOTIDINE 20 MG TABLET PO SCH (09:03)
[2020-10-16] MEDS: RIFABUTIN 150 MG CAPSULE PO SCH (09:03)
[2020-10-16] MEDS: PYRIDOXINE HCL 50 MG TABLET PO SCH (09:04)
[2020-10-16] MEDS: DOCUSATE SODIUM 100 MG CAPSULE PO SCH ×2 (09:04→19:54)
[2020-10-16] MEDS: HEPARIN SODIUM,PORCINE 5,000 UNITS/ML VIAL SQ SCH (09:04)
[2020-10-16] MEDS: CARVEDILOL 3.125 MG TABLET PO SCH ×2 (09:04→19:54)
[2020-10-16 13:15] VITALS: BP 154/63
[2020-10-16 16:30] VITALS: BP 168/81
[2020-10-16] MEDS: CefTAZidime PENTAHYDRATE 1 GM in DEXTROSE 5%-WATER 50 ML IV SCH (17:53)
[2020-10-16] MEDS: APIXABAN 2.5 MG TABLET PO SCH (19:54)
[2020-10-16] MEDS: ATORVASTATIN CALCIUM 20 MG TABLET PO SCH (19:55)
[2020-10-16 19:56] VITALS: BP 152/68
[2020-10-16 20:11] LABS: GLUCOMETER DEV NAME(LOC) 6S.1; GLUCOSE,POINT OF CARE 126 MG/DL (70-110)
[2020-10-16 20:11] LABS: GLUCOMETER DEV NAME(LOC) 6S.1; GLUCOSE,POINT OF CARE 136 MG/DL (70-110)
[2020-10-17] VITALS (8 sets, daily range): BP systolic 144–169; BP diastolic 62–84
[2020-10-17 00:17] LABS: GLUCOMETER DEV NAME(LOC) 6S.1; GLUCOSE,POINT OF CARE 125 MG/DL (70-110)
[2020-10-17 07:35] LABS: GLUCOMETER DEV NAME(LOC) 6S.1; GLUCOSE,POINT OF CARE 107 MG/DL (70-110)
[2020-10-17 07:35] LABS: GLUCOMETER DEV NAME(LOC) 6S.1; GLUCOSE,POINT OF CARE 74 MG/DL (70-110)
[2020-10-17] MEDS: ASPIRIN 81 MG CHEWABLE TABLET PO SCH (08:16)
[2020-10-17] MEDS: RIFABUTIN 150 MG CAPSULE PO SCH (08:16)
[2020-10-17] MEDS: PYRAZINAMIDE 500 MG TABLET PO SCH (08:16)
[2020-10-17] MEDS: ETHAMBUTOL HCL 400 MG TABLET PO SCH (08:16)
[2020-10-17] MEDS: VITAMIN B COMP/VIT C/FOLIC ACID CAPSULE PO SCH (08:17)
[2020-10-17] MEDS: FAMOTIDINE 20 MG TABLET PO SCH (08:17)
[2020-10-17] MEDS: DOCUSATE SODIUM 100 MG CAPSULE PO SCH ×2 (08:17→20:30)
[2020-10-17] MEDS: APIXABAN 2.5 MG TABLET PO SCH ×2 (08:17→20:30)
[2020-10-17] MEDS: ISONIAZID 300 MG TABLET PO SCH (08:17)
[2020-10-17 08:25] LABS: BASOPHILS % (AUTO) 1.1 % (0.0-2.0); EOSINOPHILS % (AUTO) 0.8 % (1.0-6.0); HEMATOCRIT 31.9 % (41-53); HEMOGLOBIN 10.7 g/dL (13.5-17.5); LYMPHOCYTES % (AUTO) 15.8 % (22.0-44.0); MEAN CORPUSCULAR HGB CONC 33.7 G/dL (31.0-37.0); MEAN CORPUSCULAR VOLUME 98 fL (80-100); MONOCYTES # (AUTO) 0.7 K/uL (0.1-1.0); MONOCYTES % (AUTO) 12.1 % (2.0-9.0); NEUTROPHILS # (AUTO) 4.4 K/uL (1.8-7.7); NEUTROPHILS % (AUTO) 70.2 % (40.0-70.0); PLATELET COUNT (AUTO) 113 K/uL (150-450); RED BLOOD CELL COUNT(AUTO) 3.26 MIL/uL (4.50-5.90); RED CELL DISTRIBUTION WIDTH 15.8 % (11.5-14.5)
[2020-10-17 08:50] LABS: ALBUMIN 2.3 g/dL (3.4-5.0); BILIRUBIN,TOTAL 0.5 mg/dL (0.1-1.0); CALCIUM, TOTAL 7.8 mg/dL (8.8-10.5); CREATININE 5.09 mg/dL (0.60-1.30); FREE T4 (FREE THYROXINE) 1.46 ng/dL (0.76-1.46); POTASSIUM 5.2 mmol/L (3.5-5.1); THYROID STIMULATING HORMONE 1.2 uIU/mL (0.36-3.74)
[2020-10-17] MEDS: PYRIDOXINE HCL 50 MG TABLET PO SCH (09:22)
[2020-10-17] MEDS ORDERED: SODIUM CHLORIDE 0.9% 3,000 ML ONE (09:49)
[2020-10-17] MEDS: CARVEDILOL 3.125 MG TABLET PO SCH ×2 (13:45→20:30)
[2020-10-17 14:37] LABS: GLUCOMETER DEV NAME(LOC) 6N.1; GLUCOSE,POINT OF CARE 113 MG/DL (70-110)
[2020-10-17] MEDS: CefTAZidime PENTAHYDRATE 1 GM in DEXTROSE 5%-WATER 50 ML IV SCH (17:18)
[2020-10-17 19:12] LABS: GLUCOMETER DEV NAME(LOC) 6N.1; GLUCOSE,POINT OF CARE 106 MG/DL (70-110)
[2020-10-17] MEDS: ATORVASTATIN CALCIUM 20 MG TABLET PO SCH (20:30)
[2020-10-17] MEDS: INSULIN LISPRO 100 UNITS/ML SQ PRN (20:42)
[2020-10-18 00:28] LABS: GLUCOMETER DEV NAME(LOC) 6N.1; GLUCOSE,POINT OF CARE 142 MG/DL (70-110)
[2020-10-18 05:02] VITALS: BP 148/72
[2020-10-18 08:16] LABS: BASOPHILS % (AUTO) 1.1 % (0.0-2.0); EOSINOPHILS % (AUTO) 1.2 % (1.0-6.0); HEMATOCRIT 35.4 % (41-53); HEMOGLOBIN 11.4 g/dL (13.5-17.5); LYMPHOCYTES % (AUTO) 15.8 % (22.0-44.0); MEAN CORPUSCULAR HGB CONC 32.2 G/dL (31.0-37.0); MEAN CORPUSCULAR VOLUME 99 fL (80-100); MONOCYTES # (AUTO) 0.8 K/uL (0.1-1.0); NEUTROPHILS # (AUTO) 4.4 K/uL (1.8-7.7); NEUTROPHILS % (AUTO) 69.9 % (40.0-70.0); PLATELET COUNT (AUTO) 130 K/uL (150-450); RED BLOOD CELL COUNT(AUTO) 3.57 MIL/uL (4.50-5.90); RED CELL DISTRIBUTION WIDTH 16.2 % (11.5-14.5)
[2020-10-18 08:31] VITALS: BP 143/59
[2020-10-18 08:32] LABS: CALCIUM, TOTAL 8.7 mg/dL (8.8-10.5); CREATININE 3.6 mg/dL (0.60-1.30); POTASSIUM 4.4 mmol/L (3.5-5.1)
[2020-10-18 08:39] LABS: GLUCOMETER DEV NAME(LOC) 6S.1; GLUCOSE,POINT OF CARE 74 MG/DL (70-110)
[2020-10-18] MEDS: ASPIRIN 81 MG CHEWABLE TABLET PO SCH (08:50)
[2020-10-18] MEDS: EPOETIN ALFA 10,000 UNITS/ML VIAL SQ SCH (08:50)
[2020-10-18] MEDS: CARVEDILOL 3.125 MG TABLET PO SCH ×2 (08:50→20:04)
[2020-10-18] MEDS: ISONIAZID 300 MG TABLET PO SCH (08:51)
[2020-10-18] MEDS: RIFABUTIN 150 MG CAPSULE PO SCH (08:51)
[2020-10-18] MEDS: APIXABAN 2.5 MG TABLET PO SCH ×2 (08:51→20:04)
[2020-10-18] MEDS: FAMOTIDINE 20 MG TABLET PO SCH (08:52)
[2020-10-18] MEDS: DOCUSATE SODIUM 100 MG CAPSULE PO SCH ×2 (08:57→20:04)
[2020-10-18] MEDS: VITAMIN B COMP/VIT C/FOLIC ACID CAPSULE PO SCH (08:58)
[2020-10-18] MEDS: PYRIDOXINE HCL 50 MG TABLET PO SCH (08:58)
[2020-10-18] MEDS: INSULIN LISPRO 100 UNITS/ML SQ PRN (11:21)
[2020-10-18] MEDS ORDERED: PYRIDOXINE HCL 50 MG TABLET PO ONE (11:45)
[2020-10-18 15:21] LABS: GLUCOMETER DEV NAME(LOC) 6N.1; GLUCOSE,POINT OF CARE 170 MG/DL (70-110)
[2020-10-18 16:18] VITALS: BP 159/60
[2020-10-18 17:56] LABS: GLUCOMETER DEV NAME(LOC) 6N.1; GLUCOSE,POINT OF CARE 96 MG/DL (70-110)
[2020-10-18 20:04] VITALS: BP 143/56
[2020-10-18] MEDS: ATORVASTATIN CALCIUM 20 MG TABLET PO SCH (20:04)
[2020-10-19 00:09] LABS: GLUCOMETER DEV NAME(LOC) 6N.1; GLUCOSE,POINT OF CARE 121 MG/DL (70-110)
[2020-10-19 04:52] VITALS: BP 144/63
[2020-10-19 06:51] LABS: BASOPHILS % (AUTO) 1.1 % (0.0-2.0); EOSINOPHILS % (AUTO) 1.7 % (1.0-6.0); HEMATOCRIT 31.7 % (41-53); HEMOGLOBIN 10.4 g/dL (13.5-17.5); LYMPHOCYTES # (AUTO) 1.1 K/uL (1.0-4.8); LYMPHOCYTES % (AUTO) 16.1 % (22.0-44.0); MEAN CORPUSCULAR HEMOGLOBIN 32.4 pg (26.0-34.0); MEAN CORPUSCULAR HGB CONC 32.9 G/dL (31.0-37.0); MEAN CORPUSCULAR VOLUME 98 fL (80-100); MONOCYTES # (AUTO) 0.9 K/uL (0.1-1.0); MONOCYTES % (AUTO) 12.4 % (2.0-9.0); NEUTROPHILS # (AUTO) 4.7 K/uL (1.8-7.7); NEUTROPHILS % (AUTO) 68.7 % (40.0-70.0); PLATELET COUNT (AUTO) 144 K/uL (150-450); RED BLOOD CELL COUNT(AUTO) 3.22 MIL/uL (4.50-5.90); RED CELL DISTRIBUTION WIDTH 15.9 % (11.5-14.5)
[2020-10-19 07:04] LABS: GLUCOMETER DEV NAME(LOC) 6N.1; GLUCOSE,POINT OF CARE 95 MG/DL (70-110)
[2020-10-19 07:25] LABS: ALBUMIN 2.3 g/dL (3.4-5.0); BILIRUBIN,TOTAL 0.4 mg/dL (0.1-1.0); CALCIUM, TOTAL 8.1 mg/dL (8.8-10.5); CREATININE 5.01 mg/dL (0.60-1.30); POTASSIUM 5.6 mmol/L (3.5-5.1); TOTAL PROTEIN, SERUM 7.2 g/dL (6.4-8.2); VANCOMYCIN,RANDOM 13.6 mcg/mL (25.0-50.0)
[2020-10-19 07:29] VITALS: BP 140/66
[2020-10-19] MEDS: APIXABAN 2.5 MG TABLET PO SCH ×2 (08:13→20:03)
[2020-10-19] MEDS: FAMOTIDINE 20 MG TABLET PO SCH (08:13)
[2020-10-19] MEDS: ASPIRIN 81 MG CHEWABLE TABLET PO SCH (08:13)
[2020-10-19] MEDS: PYRIDOXINE HCL 50 MG TABLET PO SCH (08:13)
[2020-10-19] MEDS: VITAMIN B COMP/VIT C/FOLIC ACID CAPSULE PO SCH (08:13)
[2020-10-19] MEDS: DOCUSATE SODIUM 100 MG CAPSULE PO SCH ×2 (08:14→20:03)
[2020-10-19] MEDS: CARVEDILOL 3.125 MG TABLET PO SCH ×2 (08:14→20:03)
[2020-10-19] MEDS: INSULIN LISPRO 100 UNITS/ML SQ PRN ×2 (12:04→20:04)
[2020-10-19 12:22] LABS: GLUCOMETER DEV NAME(LOC) 6S.1; GLUCOSE,POINT OF CARE 187 MG/DL (70-110)
[2020-10-19 15:07] VITALS: BP 146/68
[2020-10-19 18:39] LABS: GLUCOMETER DEV NAME(LOC) 6S.1; GLUCOSE,POINT OF CARE 122 MG/DL (70-110)
[2020-10-19] MEDS: ATORVASTATIN CALCIUM 20 MG TABLET PO SCH (20:03)
[2020-10-19 20:27] VITALS: BP 153/68
[2020-10-19 23:34] LABS: GLUCOMETER DEV NAME(LOC) 6N.1; GLUCOSE,POINT OF CARE 147 MG/DL (70-110)
[2020-10-20 04:34] VITALS: BP 176/64
[2020-10-20] MEDS: CloNIDine HCL 0.1 MG TABLET PO PRN (04:40)
[2020-10-20 06:11] LABS: GLUCOMETER DEV NAME(LOC) 6N.1; GLUCOSE,POINT OF CARE 84 MG/DL (70-110)
[2020-10-20 06:30] LABS: EOSINOPHILS % (AUTO) 2.4 % (1.0-6.0); HEMATOCRIT 31.3 % (41-53); HEMOGLOBIN 10.4 g/dL (13.5-17.5); LYMPHOCYTES # (AUTO) 1.2 K/uL (1.0-4.8); LYMPHOCYTES % (AUTO) 17.9 % (22.0-44.0); MEAN CORPUSCULAR HEMOGLOBIN 32.6 pg (26.0-34.0); MEAN CORPUSCULAR HGB CONC 33.1 G/dL (31.0-37.0); MEAN CORPUSCULAR VOLUME 98 fL (80-100); MONOCYTES # (AUTO) 0.8 K/uL (0.1-1.0); MONOCYTES % (AUTO) 11.8 % (2.0-9.0); NEUTROPHILS # (AUTO) 4.5 K/uL (1.8-7.7); NEUTROPHILS % (AUTO) 66.9 % (40.0-70.0); PLATELET COUNT (AUTO) 142 K/uL (150-450); RED BLOOD CELL COUNT(AUTO) 3.18 MIL/uL (4.50-5.90); RED CELL DISTRIBUTION WIDTH 15.8 % (11.5-14.5)
[2020-10-20 06:50] LABS: ALBUMIN 2.2 g/dL (3.4-5.0); BILIRUBIN,TOTAL 0.5 mg/dL (0.1-1.0); CALCIUM, TOTAL 8.3 mg/dL (8.8-10.5); CREATININE 5.92 mg/dL (0.60-1.30); POTASSIUM 5.3 mmol/L (3.5-5.1); TOTAL PROTEIN, SERUM 7.1 g/dL (6.4-8.2)
[2020-10-20 08:23] VITALS: BP 141/60
[2020-10-20] MEDS: VITAMIN B COMP/VIT C/FOLIC ACID CAPSULE PO SCH (08:47)
[2020-10-20] MEDS: APIXABAN 2.5 MG TABLET PO SCH ×2 (08:47→20:08)
[2020-10-20] MEDS: PYRIDOXINE HCL 50 MG TABLET PO SCH (08:47)
[2020-10-20] MEDS: FAMOTIDINE 20 MG TABLET PO SCH (08:47)
[2020-10-20] MEDS: DOCUSATE SODIUM 100 MG CAPSULE PO SCH ×2 (08:47→20:08)
[2020-10-20] MEDS: CARVEDILOL 3.125 MG TABLET PO SCH ×2 (08:47→20:08)
[2020-10-20] MEDS: ASPIRIN 81 MG CHEWABLE TABLET PO SCH (08:47)
[2020-10-20] MEDS: INSULIN LISPRO 100 UNITS/ML SQ PRN (12:08)
[2020-10-20 14:46] LABS: GLUCOMETER DEV NAME(LOC) 6N.1; GLUCOSE,POINT OF CARE 199 MG/DL (70-110)
[2020-10-20 15:07] VITALS: BP 118/58
[2020-10-20 16:37] LABS: MAGNESIUM 2.6 mg/dL (1.80-2.40); PHOSPHORUS 4.4 mg/dL (2.5-4.9)
[2020-10-20 19:15] VITALS: BP 117/56
[2020-10-20] MEDS: ATORVASTATIN CALCIUM 20 MG TABLET PO SCH (20:08)
[2020-10-20 20:10] LABS: GLUCOMETER DEV NAME(LOC) 6S.1; GLUCOSE,POINT OF CARE 90 MG/DL (70-110)
[2020-10-20 22:22] LABS: GLUCOMETER DEV NAME(LOC) 6S.1; GLUCOSE,POINT OF CARE 68 MG/DL (70-110)
[2020-10-20 23:54] VITALS: BP 152/67
[2020-10-21 05:27] VITALS: BP 150/63
[2020-10-21 06:47] LABS: GLUCOMETER DEV NAME(LOC) 6S.1; GLUCOSE,POINT OF CARE 177 MG/DL (70-110)
[2020-10-21 06:47] LABS: GLUCOMETER DEV NAME(LOC) 6N.1; GLUCOSE,POINT OF CARE 76 MG/DL (70-110)
[2020-10-21 07:22] VITALS: BP 144/59
[2020-10-21] MEDS: VITAMIN B COMP/VIT C/FOLIC ACID CAPSULE PO SCH (08:52)
[2020-10-21] MEDS: PYRIDOXINE HCL 50 MG TABLET PO SCH (08:52)
[2020-10-21] MEDS: CARVEDILOL 3.125 MG TABLET PO SCH ×2 (08:52→19:53)
[2020-10-21] MEDS: DOCUSATE SODIUM 100 MG CAPSULE PO SCH ×2 (08:52→19:53)
[2020-10-21] MEDS: ASPIRIN 81 MG CHEWABLE TABLET PO SCH (08:52)
[2020-10-21] MEDS: APIXABAN 2.5 MG TABLET PO SCH ×2 (08:53→19:53)
[2020-10-21] MEDS: FAMOTIDINE 20 MG TABLET PO SCH (08:53)
[2020-10-21] MEDS: EPOETIN ALFA 10,000 UNITS/ML VIAL SQ SCH (08:54)
[2020-10-21] MEDS: INSULIN LISPRO 100 UNITS/ML SQ PRN ×2 (11:33→20:02)
[2020-10-21 12:00] VITALS: BP 131/63
[2020-10-21 14:46] LABS: GLUCOMETER DEV NAME(LOC) 6S.1; GLUCOSE,POINT OF CARE 149 MG/DL (70-110)
[2020-10-21 16:18] VITALS: BP 137/61
[2020-10-21] MEDS: ATORVASTATIN CALCIUM 20 MG TABLET PO SCH (19:53)
[2020-10-21 19:59] VITALS: BP 143/72
[2020-10-21 20:01] LABS: GLUCOMETER DEV NAME(LOC) 6N.1; GLUCOSE,POINT OF CARE 119 MG/DL (70-110)
[2020-10-21 22:48] LABS: GLUCOMETER DEV NAME(LOC) 6N.1; GLUCOSE,POINT OF CARE 148 MG/DL (70-110)
[2020-10-22 03:45] VITALS: BP 154/57
[2020-10-22 06:33] LABS: GLUCOMETER DEV NAME(LOC) 6S.1; GLUCOSE,POINT OF CARE 79 MG/DL (70-110)
[2020-10-22 08:00] VITALS: BP 149/68
[2020-10-22] MEDS: VITAMIN B COMP/VIT C/FOLIC ACID CAPSULE PO SCH (08:28)
[2020-10-22] MEDS: DOCUSATE SODIUM 100 MG CAPSULE PO SCH ×2 (08:30→21:00)
[2020-10-22] MEDS: ASPIRIN 81 MG CHEWABLE TABLET PO SCH (08:30)
[2020-10-22] MEDS: PYRIDOXINE HCL 50 MG TABLET PO SCH (08:31)
[2020-10-22] MEDS: FAMOTIDINE 20 MG TABLET PO SCH (08:31)
[2020-10-22] MEDS: APIXABAN 2.5 MG TABLET PO SCH ×2 (08:31→21:25)
[2020-10-22] MEDS: CARVEDILOL 3.125 MG TABLET PO SCH ×2 (08:35→21:25)
[2020-10-22] MEDS ORDERED: SODIUM CHLORIDE 0.9% 2,000 ML ONE (10:51)
[2020-10-22] MEDS: INSULIN LISPRO 100 UNITS/ML SQ PRN (11:30)
[2020-10-22 12:00] VITALS: BP 145/61
[2020-10-22] MEDS: CloNIDine HCL 0.1 MG TABLET PO PRN (15:35)
[2020-10-22 16:00] VITALS: BP 153/67
[2020-10-22 17:09] LABS: GLUCOMETER DEV NAME(LOC) 6S.1; GLUCOSE,POINT OF CARE 197 MG/DL (70-110)
[2020-10-22] MEDS: ETHAMBUTOL HCL 400 MG TABLET PO SCH (17:17)
[2020-10-22] MEDS: RIFABUTIN 150 MG CAPSULE PO SCH (17:17)
[2020-10-22] MEDS: ISONIAZID 300 MG TABLET PO SCH (17:17)
[2020-10-22] MEDS: PYRAZINAMIDE 500 MG TABLET PO SCH (17:18)
[2020-10-22 19:50] VITALS: BP 166/72
[2020-10-22] MEDS: ATORVASTATIN CALCIUM 20 MG TABLET PO SCH (21:26)
[2020-10-22 22:03] LABS: GLUCOMETER DEV NAME(LOC) 6N.1; GLUCOSE,POINT OF CARE 89 MG/DL (70-110)
[2020-10-22 23:25] VITALS: BP 130/60
[2020-10-23 00:14] LABS: GLUCOMETER DEV NAME(LOC) 6S.1; GLUCOSE,POINT OF CARE 201 MG/DL (70-110)
[2020-10-23 05:34] VITALS: BP 138/66
[2020-10-23 06:31] LABS: GLUCOMETER DEV NAME(LOC) 6N.1; GLUCOSE,POINT OF CARE 89 MG/DL (70-110)
[2020-10-23 07:45] VITALS: BP 143/65
[2020-10-23] MEDS: ISONIAZID 300 MG TABLET PO SCH (08:13)
[2020-10-23] MEDS: EPOETIN ALFA 10,000 UNITS/ML VIAL SQ SCH (08:13)
[2020-10-23] MEDS: DOCUSATE SODIUM 100 MG CAPSULE PO SCH ×2 (08:13→21:06)
[2020-10-23] MEDS: APIXABAN 2.5 MG TABLET PO SCH ×2 (08:13→21:06)
[2020-10-23] MEDS: RIFABUTIN 150 MG CAPSULE PO SCH (08:13)
[2020-10-23] MEDS: FAMOTIDINE 20 MG TABLET PO SCH (08:13)
[2020-10-23] MEDS: CARVEDILOL 3.125 MG TABLET PO SCH ×2 (08:13→21:06)
[2020-10-23] MEDS: VITAMIN B COMP/VIT C/FOLIC ACID CAPSULE PO SCH (08:13)
[2020-10-23] MEDS: PYRIDOXINE HCL 50 MG TABLET PO SCH (08:13)
[2020-10-23] MEDS: ASPIRIN 81 MG CHEWABLE TABLET PO SCH (08:13)
[2020-10-23] MEDS: INSULIN LISPRO 100 UNITS/ML SQ PRN (11:25)
[2020-10-23 12:14] LABS: GLUCOMETER DEV NAME(LOC) 6N.1; GLUCOSE,POINT OF CARE 145 MG/DL (70-110)
[2020-10-23 15:37] VITALS: BP 132/74
[2020-10-23 20:59] LABS: GLUCOMETER DEV NAME(LOC) 6N.1; GLUCOSE,POINT OF CARE 121 MG/DL (70-110)
[2020-10-23] MEDS: ATORVASTATIN CALCIUM 20 MG TABLET PO SCH (21:06)
[2020-10-23 21:15] VITALS: BP 166/64
[2020-10-24 02:51] LABS: GLUCOMETER DEV NAME(LOC) 6S.1; GLUCOSE,POINT OF CARE 160 MG/DL (70-110)
[2020-10-24 05:25] VITALS: BP 147/59
[2020-10-24 05:32] LABS: GLUCOMETER DEV NAME(LOC) 6N.1; GLUCOSE,POINT OF CARE 89 MG/DL (70-110)
[2020-10-24 06:34] LABS: BASOPHILS % (AUTO) 1.3 % (0.0-2.0); EOSINOPHILS % (AUTO) 2.7 % (1.0-6.0); HEMATOCRIT 27.1 % (41-53); LYMPHOCYTES # (AUTO) 1.3 K/uL (1.0-4.8); LYMPHOCYTES % (AUTO) 19.4 % (22.0-44.0); MEAN CORPUSCULAR HEMOGLOBIN 32.9 pg (26.0-34.0); MEAN CORPUSCULAR HGB CONC 33.1 G/dL (31.0-37.0); MEAN CORPUSCULAR VOLUME 99 fL (80-100); MONOCYTES # (AUTO) 0.8 K/uL (0.1-1.0); NEUTROPHILS # (AUTO) 4.4 K/uL (1.8-7.7); NEUTROPHILS % (AUTO) 64.6 % (40.0-70.0); PLATELET COUNT (AUTO) 164 K/uL (150-450); RED BLOOD CELL COUNT(AUTO) 2.73 MIL/uL (4.50-5.90); RED CELL DISTRIBUTION WIDTH 15.8 % (11.5-14.5)
[2020-10-24 07:01] LABS: ALBUMIN 2.1 g/dL (3.4-5.0); BILIRUBIN,TOTAL 0.4 mg/dL (0.1-1.0); CALCIUM, TOTAL 8.1 mg/dL (8.8-10.5); CREATININE 4.29 mg/dL (0.60-1.30); MAGNESIUM 1.9 mg/dL (1.80-2.40); PHOSPHORUS 3.7 mg/dL (2.5-4.9); POTASSIUM 4.7 mmol/L (3.5-5.1); TOTAL PROTEIN, SERUM 6.8 g/dL (6.4-8.2)
[2020-10-24 08:13] VITALS: BP 149/65
[2020-10-24] MEDS: ASPIRIN 81 MG CHEWABLE TABLET PO SCH (08:28)
[2020-10-24] MEDS: ISONIAZID 300 MG TABLET PO SCH (08:28)
[2020-10-24] MEDS: RIFABUTIN 150 MG CAPSULE PO SCH (08:28)
[2020-10-24] MEDS: FAMOTIDINE 20 MG TABLET PO SCH (08:29)
[2020-10-24] MEDS: ETHAMBUTOL HCL 400 MG TABLET PO SCH (08:29)
[2020-10-24] MEDS: PYRAZINAMIDE 500 MG TABLET PO SCH (08:29)
[2020-10-24] MEDS: DOCUSATE SODIUM 100 MG CAPSULE PO SCH ×2 (08:29→20:09)
[2020-10-24] MEDS: PYRIDOXINE HCL 50 MG TABLET PO SCH (08:29)
[2020-10-24] MEDS: APIXABAN 2.5 MG TABLET PO SCH ×2 (08:29→20:09)
[2020-10-24] MEDS: VITAMIN B COMP/VIT C/FOLIC ACID CAPSULE PO SCH (08:29)
[2020-10-24] MEDS: CARVEDILOL 3.125 MG TABLET PO SCH ×2 (08:38→20:09)
[2020-10-24] MEDS: INSULIN LISPRO 100 UNITS/ML SQ PRN (11:19)
[2020-10-24 16:09] VITALS: BP 137/71
[2020-10-24] MEDS ORDERED: HEPARIN SODIUM,PORCINE 1,000 UNITS/ML VIAL IVP ONE (16:42)
[2020-10-24 17:20] LABS: GLUCOMETER DEV NAME(LOC) 6N.1; GLUCOSE,POINT OF CARE 156 MG/DL (70-110)
[2020-10-24 19:55] VITALS: BP 155/70
[2020-10-24] MEDS: ATORVASTATIN CALCIUM 20 MG TABLET PO SCH (20:09)
[2020-10-24 21:51] LABS: GLUCOMETER DEV NAME(LOC) 6S.1; GLUCOSE,POINT OF CARE 90 MG/DL (70-110)
[2020-10-24 21:52] LABS: GLUCOMETER DEV NAME(LOC) 6S.1; GLUCOSE,POINT OF CARE 114 MG/DL (70-110)
[2020-10-25 05:23] VITALS: BP 140/56
[2020-10-25 07:44] VITALS: BP 144/56
[2020-10-25] MEDS: VITAMIN B COMP/VIT C/FOLIC ACID CAPSULE PO SCH (08:36)
[2020-10-25] MEDS: ISONIAZID 300 MG TABLET PO SCH (08:36)
[2020-10-25] MEDS: ASPIRIN 81 MG CHEWABLE TABLET PO SCH (08:36)
[2020-10-25] MEDS: RIFABUTIN 150 MG CAPSULE PO SCH (08:36)
[2020-10-25] MEDS: PYRIDOXINE HCL 50 MG TABLET PO SCH (08:36)
[2020-10-25] MEDS: FAMOTIDINE 20 MG TABLET PO SCH (08:37)
[2020-10-25] MEDS: CARVEDILOL 3.125 MG TABLET PO SCH ×2 (08:37→21:01)
[2020-10-25] MEDS: APIXABAN 2.5 MG TABLET PO SCH ×2 (08:37→21:01)
[2020-10-25] MEDS: DOCUSATE SODIUM 100 MG CAPSULE PO SCH ×2 (08:37→21:01)
[2020-10-25] MEDS: EPOETIN ALFA 10,000 UNITS/ML VIAL SQ SCH (08:39)
[2020-10-25 09:56] LABS: GLUCOMETER DEV NAME(LOC) 6N.1; GLUCOSE,POINT OF CARE 79 MG/DL (70-110)
[2020-10-25] MEDS: INSULIN LISPRO 100 UNITS/ML SQ PRN ×2 (12:36→18:12)
[2020-10-25 15:00] VITALS: BP 147/68
[2020-10-25 15:11] LABS: GLUCOMETER DEV NAME(LOC) 6S.1; GLUCOSE,POINT OF CARE 152 MG/DL (70-110)
[2020-10-25 18:52] LABS: GLUCOMETER DEV NAME(LOC) 6S.1; GLUCOSE,POINT OF CARE 164 MG/DL (70-110)
[2020-10-25] MEDS: DEXTROSE 50%-WATER 25 GM/50 ML SYRINGE IVP PRN (20:32)
[2020-10-25 20:48] VITALS: BP 146/64
[2020-10-25] MEDS: ATORVASTATIN CALCIUM 20 MG TABLET PO SCH (21:01)
[2020-10-26 02:54] LABS: GLUCOMETER DEV NAME(LOC) 6S.1; GLUCOSE,POINT OF CARE 39 MG/DL (70-110)
[2020-10-26 02:54] LABS: GLUCOMETER DEV NAME(LOC) 6S.1; GLUCOSE,POINT OF CARE 155 MG/DL (70-110)
[2020-10-26 04:00] VITALS: BP 174/77
[2020-10-26] MEDS: CARVEDILOL 3.125 MG TABLET PO SCH ×2 (08:34→20:13)
[2020-10-26] MEDS: PYRIDOXINE HCL 50 MG TABLET PO SCH (08:34)
[2020-10-26] MEDS: RIFABUTIN 150 MG CAPSULE PO SCH (08:34)
[2020-10-26] MEDS: FAMOTIDINE 20 MG TABLET PO SCH (08:34)
[2020-10-26] MEDS: VITAMIN B COMP/VIT C/FOLIC ACID CAPSULE PO SCH (08:34)
[2020-10-26] MEDS: APIXABAN 2.5 MG TABLET PO SCH ×2 (08:34→20:13)
[2020-10-26] MEDS: ISONIAZID 300 MG TABLET PO SCH (08:34)
[2020-10-26] MEDS: DOCUSATE SODIUM 100 MG CAPSULE PO SCH ×2 (08:35→20:13)
[2020-10-26] MEDS: ASPIRIN 81 MG CHEWABLE TABLET PO SCH (08:35)
[2020-10-26 08:43] VITALS: BP 160/77
[2020-10-26 11:01] LABS: GLUCOMETER DEV NAME(LOC) 6S.1; GLUCOSE,POINT OF CARE 104 MG/DL (70-110)
[2020-10-26 15:00] LABS: GLUCOMETER DEV NAME(LOC) 6S.1; GLUCOSE,POINT OF CARE 116 MG/DL (70-110)
[2020-10-26 15:41] VITALS: BP 166/81
[2020-10-26] MEDS: CloNIDine HCL 0.1 MG TABLET PO PRN (16:25)
[2020-10-26] MEDS: ATORVASTATIN CALCIUM 20 MG TABLET PO SCH (20:13)
[2020-10-26] MEDS: INSULIN LISPRO 100 UNITS/ML SQ PRN (20:15)
[2020-10-26 20:30] VITALS: BP 129/62
[2020-10-26 23:03] LABS: GLUCOMETER DEV NAME(LOC) 6N.1; GLUCOSE,POINT OF CARE 122 MG/DL (70-110)
[2020-10-26 23:03] LABS: GLUCOMETER DEV NAME(LOC) 6S.1; GLUCOSE,POINT OF CARE 258 MG/DL (70-110)
[2020-10-27 04:34] VITALS: BP 146/74
[2020-10-27 07:37] LABS: GLUCOMETER DEV NAME(LOC) 6N.1; GLUCOSE,POINT OF CARE 72 MG/DL (70-110)
[2020-10-27 08:00] VITALS: BP 169/71
[2020-10-27] MEDS: CARVEDILOL 3.125 MG TABLET PO SCH ×2 (09:00→20:31)
[2020-10-27] MEDS: APIXABAN 2.5 MG TABLET PO SCH ×2 (09:00→20:31)
[2020-10-27] MEDS ORDERED: SODIUM CHLORIDE 0.9% 2,000 ML ONE (12:06)
[2020-10-27 14:02] LABS: GLUCOMETER DEV NAME(LOC) 6N.1; GLUCOSE,POINT OF CARE 122 MG/DL (70-110)
[2020-10-27 16:38] VITALS: BP 149/66
[2020-10-27] MEDS ORDERED: HEPARIN SODIUM,PORCINE 1,000 UNITS/ML VIAL ONE (17:29)
[2020-10-27] MEDS: DOCUSATE SODIUM 100 MG CAPSULE PO SCH ×2 (17:36→20:31)
[2020-10-27] MEDS: VITAMIN B COMP/VIT C/FOLIC ACID CAPSULE PO SCH (17:37)
[2020-10-27] MEDS: PYRIDOXINE HCL 50 MG TABLET PO SCH (17:37)
[2020-10-27] MEDS: ASPIRIN 81 MG CHEWABLE TABLET PO SCH (17:37)
[2020-10-27] MEDS: FAMOTIDINE 20 MG TABLET PO SCH (17:37)
[2020-10-27] MEDS: RIFABUTIN 150 MG CAPSULE PO SCH (17:37)
[2020-10-27] MEDS: ISONIAZID 300 MG TABLET PO SCH (17:37)
[2020-10-27] MEDS: PYRAZINAMIDE 500 MG TABLET PO SCH (17:38)
[2020-10-27] MEDS: ETHAMBUTOL HCL 400 MG TABLET PO SCH (17:38)
[2020-10-27 17:54] LABS: GLUCOMETER DEV NAME(LOC) 6N.1; GLUCOSE,POINT OF CARE 137 MG/DL (70-110)
[2020-10-27 20:13] VITALS: BP 160/82
[2020-10-27] MEDS: ATORVASTATIN CALCIUM 20 MG TABLET PO SCH (20:31)
[2020-10-27 22:02] LABS: GLUCOMETER DEV NAME(LOC) 6S.1; GLUCOSE,POINT OF CARE 101 MG/DL (70-110)
[2020-10-27 23:35] VITALS: BP 154/73
[2020-10-28 05:04] VITALS: BP 144/66
[2020-10-28 06:10] LABS: BASOPHILS % (AUTO) 1.2 % (0.0-2.0); EOSINOPHILS % (AUTO) 1.7 % (1.0-6.0); HEMATOCRIT 32.6 % (41-53); HEMOGLOBIN 10.5 g/dL (13.5-17.5); LYMPHOCYTES # (AUTO) 1.2 K/uL (1.0-4.8); MEAN CORPUSCULAR HEMOGLOBIN 32.9 pg (26.0-34.0); MEAN CORPUSCULAR HGB CONC 32.2 G/dL (31.0-37.0); MEAN CORPUSCULAR VOLUME 102 fL (80-100); MONOCYTES # (AUTO) 0.6 K/uL (0.1-1.0); MONOCYTES % (AUTO) 7.7 % (2.0-9.0); NEUTROPHILS # (AUTO) 5.2 K/uL (1.8-7.7); NEUTROPHILS % (AUTO) 72.4 % (40.0-70.0); PLATELET COUNT (AUTO) 125 K/uL (150-450); RED BLOOD CELL COUNT(AUTO) 3.19 MIL/uL (4.50-5.90); RED CELL DISTRIBUTION WIDTH 17.3 % (11.5-14.5)
[2020-10-28 07:22] LABS: BILIRUBIN,TOTAL 0.6 mg/dL (0.1-1.0); CALCIUM, TOTAL 7.7 mg/dL (8.8-10.5); CREATININE 2.78 mg/dL (0.60-1.30); POTASSIUM 4.7 mmol/L (3.5-5.1); TOTAL PROTEIN, SERUM 7.1 g/dL (6.4-8.2)
[2020-10-28 07:28] VITALS: BP 169/74
[2020-10-28] MEDS: VITAMIN B COMP/VIT C/FOLIC ACID CAPSULE PO SCH (08:50)
[2020-10-28] MEDS: DOCUSATE SODIUM 100 MG CAPSULE PO SCH ×2 (08:50→20:43)
[2020-10-28] MEDS: FAMOTIDINE 20 MG TABLET PO SCH (08:50)
[2020-10-28] MEDS: APIXABAN 2.5 MG TABLET PO SCH ×2 (08:50→20:43)
[2020-10-28] MEDS: CARVEDILOL 3.125 MG TABLET PO SCH ×2 (08:50→20:43)
[2020-10-28] MEDS: RIFABUTIN 150 MG CAPSULE PO SCH (08:51)
[2020-10-28] MEDS: ISONIAZID 300 MG TABLET PO SCH (08:51)
[2020-10-28] MEDS: ASPIRIN 81 MG CHEWABLE TABLET PO SCH (08:51)
[2020-10-28] MEDS: PYRIDOXINE HCL 50 MG TABLET PO SCH (08:51)
[2020-10-28] MEDS: EPOETIN ALFA 10,000 UNITS/ML VIAL SQ SCH (09:00)
[2020-10-28 11:06] LABS: GLUCOMETER DEV NAME(LOC) 6N.1; GLUCOSE,POINT OF CARE 71 MG/DL (70-110)
[2020-10-28 12:36] LABS: GLUCOMETER DEV NAME(LOC) 6S.1; GLUCOSE,POINT OF CARE 111 MG/DL (70-110)
[2020-10-28 15:57] VITALS: BP 157/77
[2020-10-28] MEDS ORDERED: PYRI50CA PO (16:06)
[2020-10-28] MEDS ORDERED: RIFAB150 PO (16:07)
[2020-10-28] MEDS ORDERED: B CO1CAP6 PO (16:07)
[2020-10-28] MEDS ORDERED: PYRI25TA4 PO (16:07)
[2020-10-28] MEDS ORDERED: SITA25 PO (16:08)
[2020-10-28 20:17] VITALS: BP 167/68
[2020-10-28] MEDS: INSULIN LISPRO 100 UNITS/ML SQ PRN (20:43)
[2020-10-28] MEDS: ATORVASTATIN CALCIUM 20 MG TABLET PO SCH (20:43)
[2020-10-28] MEDS: CloNIDine HCL 0.1 MG TABLET PO PRN (20:44)
[2020-10-28 23:45] VITALS: BP 115/49
[2020-10-29 01:27] LABS: GLUCOMETER DEV NAME(LOC) 6S.1; GLUCOSE,POINT OF CARE 156 MG/DL (70-110)
[2020-10-29 05:42] VITALS: BP 138/60
[2020-10-29 07:47] LABS: GLUCOMETER DEV NAME(LOC) 6N.1; GLUCOSE,POINT OF CARE 72 MG/DL (70-110)
[2020-10-29 07:47] LABS: GLUCOMETER DEV NAME(LOC) 6N.1; GLUCOSE,POINT OF CARE 243 MG/DL (70-110)
[2020-10-29 07:55] VITALS: BP 142/62
[2020-10-29] MEDS: PYRAZINAMIDE 500 MG TABLET PO SCH (09:20)
[2020-10-29] MEDS: RIFABUTIN 150 MG CAPSULE PO SCH (09:20)
[2020-10-29] MEDS: ETHAMBUTOL HCL 400 MG TABLET PO SCH (09:20)
[2020-10-29] MEDS: FAMOTIDINE 20 MG TABLET PO SCH (09:20)
[2020-10-29] MEDS: PYRIDOXINE HCL 50 MG TABLET PO SCH (09:20)
[2020-10-29] MEDS: APIXABAN 2.5 MG TABLET PO SCH (09:21)
[2020-10-29] MEDS: VITAMIN B COMP/VIT C/FOLIC ACID CAPSULE PO SCH (09:21)
[2020-10-29] MEDS: ISONIAZID 300 MG TABLET PO SCH (09:21)
[2020-10-29] MEDS: ASPIRIN 81 MG CHEWABLE TABLET PO SCH (09:21)
[2020-10-29] MEDS: DOCUSATE SODIUM 100 MG CAPSULE PO SCH (09:21)
[2020-10-29] MEDS ORDERED: SODIUM CHLORIDE 0.9% 1,000 ML ONE (10:58)
[2020-10-29] MEDS ORDERED: HEPARIN SODIUM,PORCINE 1,000 UNITS/ML VIAL IVP ONE (12:00)
[2020-10-29 13:03] LABS: COVID AG,FIA SOURCE NASAL SWAB
[2020-10-29 15:00] VITALS: BP 139/83
[2020-10-29] MEDS: CARVEDILOL 3.125 MG TABLET PO SCH (15:31)
[2020-10-29 15:53] LABS: GLUCOMETER DEV NAME(LOC) 6S.1; GLUCOSE,POINT OF CARE 86 MG/DL (70-110)
== END 2020-10-29 17:20 | DRG 177 ==
LOC: EMS 16:43 → EDSEX 16:43 → 6S 19:14 → 6N 10-16 18:15 → 6S 10-21 15:09
PROVIDERS: ADMIT Internal Medicine; ATTEND Internal Medicine
PROC: 5A1D70Z Performance of Urinary Filtration, Intermittent, Less than 6 Hours Per Day (ICD-10-PCS; principal; 2020-10-06)
PROC: 0W993ZZ Drainage of Right Pleural Cavity, Percutaneous Approach (ICD-10-PCS; 2020-10-06)
PROC: 5A1D70Z Performance of Urinary Filtration, Intermittent, Less than 6 Hours Per Day (ICD-10-PCS; 2020-10-08)
PROC: 5A1D70Z Performance of Urinary Filtration, Intermittent, Less than 6 Hours Per Day (ICD-10-PCS; 2020-10-10)
PROC: 5A1D70Z Performance of Urinary Filtration, Intermittent, Less than 6 Hours Per Day (ICD-10-PCS; 2020-10-13)
PROC: 5A1D70Z Performance of Urinary Filtration, Intermittent, Less than 6 Hours Per Day (ICD-10-PCS; 2020-10-15)
PROC: 5A1D70Z Performance of Urinary Filtration, Intermittent, Less than 6 Hours Per Day (ICD-10-PCS; 2020-10-17)
PROC: 5A1D70Z Performance of Urinary Filtration, Intermittent, Less than 6 Hours Per Day (ICD-10-PCS; 2020-10-20)
PROC: 5A1D70Z Performance of Urinary Filtration, Intermittent, Less than 6 Hours Per Day (ICD-10-PCS; 2020-10-22)
PROC: 5A1D70Z Performance of Urinary Filtration, Intermittent, Less than 6 Hours Per Day (ICD-10-PCS; 2020-10-24)
PROC: 5A1D70Z Performance of Urinary Filtration, Intermittent, Less than 6 Hours Per Day (ICD-10-PCS; 2020-10-27)
PROC: 5A1D70Z Performance of Urinary Filtration, Intermittent, Less than 6 Hours Per Day (ICD-10-PCS; 2020-10-29)
DX: A15.0 Tuberculosis of lung (principal); N18.6 End stage renal disease; I12.0 Hypertensive chronic kidney disease with stage 5 chronic kidney disease or end stage renal disease; E87.1 Hypo-osmolality and hyponatremia; J90 Pleural effusion, not elsewhere classified; Z20.1 Contact with and (suspected) exposure to tuberculosis; E11.22 Type 2 diabetes mellitus with diabetic chronic kidney disease; I25.10 Atherosclerotic heart disease of native coronary artery without angina pectoris; D63.1 Anemia in chronic kidney disease; E87.5 Hyperkalemia; I48.91 Unspecified atrial fibrillation; E78.5 Hyperlipidemia, unspecified; I72.1 Aneurysm of artery of upper extremity; E88.09 Other disorders of plasma-protein metabolism, not elsewhere classified; E11.51 Type 2 diabetes mellitus with diabetic peripheral angiopathy without gangrene; J43.9 Emphysema, unspecified; Z99.2 Dependence on renal dialysis; Z95.1 Presence of aortocoronary bypass graft; Z79.01 Long term (current) use of anticoagulants; Z86.11 Personal history of tuberculosis; Z87.891 Personal history of nicotine dependence
CPT/HCPCS: 32555; 36600; 70450; 70551; 71045; 71046; 71250; 76942; 80048; 80053; 80061; 80076; 80202; 81001; 81002; 82042; 82140; 82805; 82962; 83615; 83690; 83735; 83880; 84100; 84145; 84157; 84311; 84439; 84443; 84484; 85025; 85610; 86480; 87015; 87040; 87070; 87081; 87086; 87149; 87153; 87206; 87340; 87389; 87556; 87566; 89051; 90935; 93005; 93306; 94640; 97110; 97112; 97116; 97162; 97166; 97530; 97535; 99285; J0713; J0885; J1644; J3370; J3475; J7030; J7050; J7060; 36415-L1; 36415-TC